=== PATIENT | female | born 1970 | race Caucasian/White ===

== ENCOUNTER 2023-09-07 14:36 | Emergency (ER) | payer OTHER ==
[2023-09-07] MEDS ORDERED: Lidocaine 1% (PF) 30 ML VIAL ONE (14:59)
[2023-09-07] MEDS ORDERED: Boostrix 0.5 ML (Tdap) VIAL (>/=7 yrs of age) ONE (15:15)
== END 2023-09-07 15:20 | disposition home or self-care (01) ==
LOC: NAV ERS 14:36
DX: S81.012A Laceration without foreign body, left knee, initial encounter (principal); W22.8XXA Striking against or struck by other objects, initial encounter; Z23 Encounter for immunization
CPT/HCPCS: 12001; 90471; 90715; J2001